=== PATIENT | male | born 1950 | race Caucasian/White ===

== ENCOUNTER 2017-10-28 16:13 | Inpatient (IN) ==
--- NOTE | 2017-10-28 16:59 | Emergency Department Note ---
Disposition Clinical Impression: TIA (transient ischemic attack) Disposition: Admitted As Inpatient Condition: Good [facility] - Forms: ED Satisfaction Letter General Adult HPI - General Chief complaint: ED Neuro Symptoms/Deficit Stated complaint: Left side face and arm Time Seen by Provider: 10/28/17 16:37 Source: patient Limitations: no limitations Nursing Notes Reviewed: Yes Vital Signs Reviewed: Yes - History of Present Illness HPI Narrative: [place] sent [place] the [facility] for further evaluation of TIA. Transferred for neurology evaluation. Symptoms started upon awakening. Left-sided paresthesias. Patient did have some right-sided face paresthesias and upon evaluation at the [facility] had concern for left-sided facial droop. Patient has had some symptoms similar in the past were never evaluated. Always resolved on their own. Symptoms lasted longer than usual today. Symptoms have completely resolved upon evaluation in the emergency department. No fevers or chills. No chest pain or shortness of breath or abdominal pain or nausea or vomiting or diarrhea. Past medical history includes left foot wound. Chronic skin ulcer. Mild asthma. Lumbar stenosis. Hypogonadism. Hypertriglyceridemia. Diabetes with neurologic manifestations. Gout. Sleep apnea. Celiac disease. Reflux. Hypertension. Medications include allopurinol, doxycycline, duloxetine area gabapentin. HIDA chlorothiazide. Lisinopril. Metformin. Metoprolol. Modafinil. Naproxen. Omeprazole. Zolpidem. Fall psych with your. Pain Scale: 0 - Related Data Home Medications Medication Instructions Recorded Confirmed Albuterol Sulfate [Albuterol 2 puff IH Q4H PRN 08/11/17 10/28/17 Inhaler] Allopurinol [Zyloprim] 300 mg PO BID 08/11/17 10/28/17 Gabapentin [Neurontin] 600 mg PO TID 08/11/17 10/28/17 Insulin Glargine [Lantus] 45 units SQ DAILY 08/11/17 10/28/17 Lisinopril 30 mg PO DAILY 08/11/17 10/28/17 Metformin HCl [Glumetza] 2,000 mg PO DAILY 08/11/17 10/28/17 Metoprolol [Lopressor] 50 mg PO DAILY 08/11/17 10/28/17 Modafinil [Provigil] 200 mg PO BID 08/11/17 10/28/17 NIFEdipine [Nifedipine ER] 30 mg PO DAILY 08/11/17 10/28/17 Omeprazole [PriLOSEC] 40 mg PO DAILY 08/11/17 10/28/17 Sertraline [Zoloft] 50 mg PO DAILY 08/11/17 10/28/17 Budesonide/Formoterol 80/4.5 2 puff IH BID 10/28/17 10/28/17 [Symbicort 80/4.5] Cholecalciferol (D-3) [Vitamin D] 1,000 unit PO DAILY 10/28/17 10/28/17 Duloxetine HCl [Cymbalta] 60 mg PO DAILY 10/28/17 10/28/17 Insulin LISPRO [HumaLOG] 8 - 10 units SQ TIDWM 10/28/17 10/28/17 hydroCHLOROthiazide 25 mg PO DAILY 10/28/17 10/28/17 [Hydrochlorothiazide] Allergies Allergy/AdvReac Type Severity Reaction Status Date / Time Sulfa (Sulfonamide AdvReac Difficulty Verified 08/19/16 13:47 Antibiotics) Breathing Review of Systems: CONSTITUTIONAL: No weight loss, fever, chills, weakness or fatigue. HEENT: Eyes: No visual changes. Ears, Nose, Throat: No hearing loss, difficulty talking or unable to swallow. SKIN: No rash or itching. CARDIOVASCULAR: No chest pain, chest pressure or chest discomfort. No palpitations or edema. RESPIRATORY: No shortness of breath, cough or sputum. GASTROINTESTINAL: No anorexia, nausea, vomiting or diarrhea. No abdominal pain or blood. GENITOURINARY: No burning on urination or hematuria. NEUROLOGICAL: Left arm paresthesias and weakness. Left facial droop. No headache, dizziness, syncope, paralysis, ataxia. No change in bowel or bladder control. MUSCULOSKELETAL: No muscle pain, back pain, joint pain or stiffness. Past Medical History - Past Medical History Medical history: Reports: arthritis, diabetes, GERD, hyperlipidemia, hypertension, myocardial infarction, other Psychiatric history: Reports: no psych history - Social History Smoking Status: Never smoker Smokeless Tobacco Status: No Alcohol use: Reports: none Drug use: Reports: none Physical Exam General: Well appearing, nontoxic, no acute distress Head: Normocephalic Atraumatic Eyes: PERRL, EOMI ENT: Airway patent, no stridor Neck: supple Chest: Lungs clear to auscultation bilateral Cardiac: Regular rate and rhythm, no murmurs, rubs or gallops Abdomen: soft, nontender, nondistended; no guarding, rebound, or tenderness to percussion Musculoskeletal: Calves symmetric, nontender Skin: No rash, normal skin tone Neuro: Alert and Oriented to person, place, and time; No focal deficit, CN 2-12 symmetric and intact other than mild left facial droop which has unknown chronicity. 5 out of 5 muscle strength the upper lower extremities. Finger to nose and heel to shafer intact. Sensory intact throughout the face arms and legs. - General Limitations: no limitations General appearance: alert, in no apparent distress Course - Consultations Consultation #1: Discussed with hospitalist. Patient accepted for admission. Vital Signs Temperature 97.7 F 10/28/17 16:16 Pulse Rate 73 10/28/17 16:16 Respiratory Rate 14 10/28/17 16:16 Blood Pressure 141/101 10/28/17 16:16 O2 Sat by Pulse Oximetry 99 10/28/17 16:16 Temperature 97.7 F 10/28/17 16:16 Pulse Rate 73 10/28/17 16:16 Respiratory Rate 14 10/28/17 16:16 Blood Pressure 141/101 10/28/17 16:16 O2 Sat by Pulse Oximetry 99 10/28/17 16:16 Oxygen Delivery Oxygen Delivery Room Air Medical Decision Making - Medical Records Medical records reviewed: Yes I reviewed the patient's medical records. - Lab Data Lab results reviewed: Yes I reviewed the patient's lab results. Result diagrams: 10/28/17 17:33 10/28/17 17:33 Lab Results 10/28/17 10/28/17 10/28/17 Range/Units 17:33 17:33 17:33 WBC 6.0 (4.3-11.1) K/mcL RBC 3.97 L (4.19-5.50) M/mcL Hgb 12.0 L (12.9-16.9) g/dL Hct 32.9 L (37.5-50.1) % MCV 82.9 L (83.0-100.0) fL MCH 30.2 (28.0-33.3) pg MCHC 36.5 H (31.6-35.5) g/dL RDW 13.3 (11.5-14.5) % Plt Count 149 (140-400) K/mcL MPV 11.2 (9.4-12.4) fL Immature Gran % 1.8 (0-4) % Seg Neutrophils % 70.8 % Lymphocytes % 17.9 % Monocytes % 5.0 % Eosinophils % 3.8 % Basophils % 0.7 % Neutrophils # 4.3 (1.6-8.9) K/mcL Lymphocytes # 1.1 (0.6-4.6) K/mcL Monocytes # 0.3 (0.0-1.3) K/mcL Eosinophils # 0.2 (0.0-0.6) K/mcL Basophils # 0.0 (0.0-0.2) K/mcL PT 13.6 H (9.4-12.1) Seconds INR 1.2 Sodium 133 L (136-145) mEq/L Potassium 4.2 (3.5-5.1) mEq/L Chloride 102 (98-107) mEq/L Carbon Dioxide 23 (23-29) mEq/L BUN 23 (8-23) mg/dL Creatinine 1.14 (0.70-1.30) mg/dL Est GFR ( Amer) > 60 (> 60) Est GFR (Non-Af Amer) > 60 (> 60) BUN/Creatinine Ratio 20 (6-26) Glucose 191 H (70-105) mg/dL Calculated Osmolality 285 (280-300) Calcium 9.2 (8.6-10.3) mg/dL Troponin I < 0.03 (< 0.04) ng/mL - Radiology Data Radiology results reviewed: Yes I reviewed the patient's radiology results. - EKG Data EKG #1 EKG attestation: Yes I reviewed and interpreted this EKG. EKG results narrative: EKG shows sinus rhythm with a heart rate of 81. AL interval 186. QRS 98. QTC 443. Patient has no significant ST elevations or depressions. No previous EKG for comparison.
[2017-10-28] MEDS ORDERED: 0.9 % Sodium Chloride 1,000 ML IVC ONE (17:19)
[2017-10-28 17:57] LABS: Basophils % 0.7 %; Eosinophils # 0.2 K/mcL (0.0-0.6); Eosinophils % 3.8 %; Hematocrit 32.9 % (37.5-50.1); Immature Granulocytes % 1.8 % (0-4); Lymphocytes # 1.1 K/mcL (0.6-4.6); Lymphocytes % 17.9 %; Mean Corpuscular HGB Conc 36.5 g/dL (31.6-35.5); Mean Corpuscular Hemoglobin 30.2 pg (28.0-33.3); Mean Corpuscular Volume 82.9 fL (83.0-100.0); Mean Platelet Volume 11.2 fL (9.4-12.4); Monocytes # 0.3 K/mcL (0.0-1.3); Neutrophils # 4.3 K/mcL (1.6-8.9); Platelet Count 149 K/mcL (140-400); Red Blood Count 3.97 M/mcL (4.19-5.50); Red Cell Distribution Width 13.3 % (11.5-14.5); Segmented Neutrophils % 70.8 %
[2017-10-28 18:05] LABS: INR 1.2; Prothrombin Time 13.6 Seconds (9.4-12.1)
[2017-10-28 18:21] LABS: BUN/Creatinine Ratio 20 (6-26); Blood Urea Nitrogen 23 mg/dL (8-23); Calcium 9.2 mg/dL (8.6-10.3); Carbon Dioxide 23 mEq/L (23-29); Chloride 102 mEq/L (98-107); Glucose 191 mg/dL (70-105); Osmolality,Calculated 285 (280-300); Potassium 4.2 mEq/L (3.5-5.1); Sodium 133 mEq/L (136-145); eGFR For Non-African Americans > 60 (> 60)
[2017-10-28 18:22] LABS: Troponin I < 0.03 ng/mL (< 0.04)
[2017-10-28] MEDS ORDERED: *HR* Dextrose 50 % in Water (Syg) 50 ML SYRINGE IVP PRN ×2 (20:59→22:18)
[2017-10-28] MEDS ORDERED: D5% in Water 1,000 ML IVC PRN ×2 (20:59→22:18)
[2017-10-28] MEDS ORDERED: Dextrose Gel 15 GM/37.5 ML TUBE PO PRN ×4 (20:59→22:18)
[2017-10-28] MEDS: Insulin LISPRO 300 UNITS/3 ML VIAL SQ SCH (22:01)
[2017-10-28] MEDS ORDERED: Naloxone 0.4 MG/ML INJ IVP PRN (22:18)
--- NOTE | 2017-10-29 00:09 | Internal Med History&Physical ---
Date of Encounter: 10/28/17 Time of Encounter: 20:50 Internal Medicine - H&P: HPI Chief complaint: left sided numbness Admitted From: Emergency Dept Plans for Post Hospital Care: Home History of present illness: Mr. Lloyd is a 67 year old male who presents to the ER today upon referral from the [place] urgent care. He presented to the [place] urgent care earlier today with complaints of left-sided numbness and weakness of his arm and left-sided facial numbness and tingling. By the time he arrived to our ER, his symptoms resolved. He has had these episodes before but has not had a complete workup for stroke. Workup in the ER was negative, and he was admitted to the hospitalist service. Upon my assessment of the patient, patient feels well and has no further complaints. His symptoms have completely resolved. He does state that this has happened twice before with quick resolution within minutes. However, this time, the episode lasted several hours. Risk factors for stroke include diabetes, hypertension, and hyperlipidemia. He also describes some exertional dyspnea which has occurred several times over the last few weeks. He denies any chest pain or palpitations. He is diabetic, however. He states he has had a remote heart attack in the past, but he had a clean heart catheterization several years ago after the heart attack. Currently he has no chest pain, dyspnea, or diaphoresis. Past Med Surg Social Fam HX - Past Medical History Attestation: Yes The following information was validated with the patient. Source: patient, old records reviewed, [facility]) Medical history: arthritis, diabetes, GERD, hyperlipidemia, hypertension, myocardial infarction, other Additional medical history: Gout, Cerebral Ischemia Psychiatric history: no psych history - Past Surgical History Surgical History: cholecystectomy, herniorrhaphy Additional surgical history: back surgery, strangulated hernia, Gallbladder removal. - Social History Smoking Status: Never smoker Smokeless Tobacco Status: No Alcohol use: none Drug use: none Current living situation: Home Activity Level: Independent ambulation Recent Out of Country Travel Within the Last 8 Weeks: No - Family History Father Family Member Ethnicity: Non- Living Status: Age at : 86 Cause of : CHF Hx Family Cardiac Disorders: Yes (CHF, HTN) Hx Family Respiratory Disorders: No Hx Family Cancer: No Hx Family GI Disorders: No Hx Family Genitourinary Disorders: No Hx Family Endocrine Disorder: No Hx Family Musculoskeletal Disorders: No Hx Family Neuromuscular Disorders: No Hx Family Neurologic Disorders: No Hx Family HEENT Disorders: No Hx Family Autoimmune Disorders: No Hx Family Reproductive Disorders: No Hx Family Psychosocial Disorders: No Hx Family Medical Disorders: No Mother Family Member Ethnicity: Non- Living Status: Age at : 85 Cause of : CHF Hx Family Cardiac Disorders: Yes (CHF, MA, HTN, HLD) Hx Family Respiratory Disorders: Yes (Asthma, COPD) Hx Family Cancer: No Hx Family GI Disorders: Yes (GERD) Hx Family Genitourinary Disorders: Yes (Kidney disease) Hx Family Endocrine Disorder: Yes (DM) Hx Family Musculoskeletal Disorders: No Hx Family Neuromuscular Disorders: No Hx Family Neurologic Disorders: No Hx Family HEENT Disorders: No Hx Family Autoimmune Disorders: No Hx Family Reproductive Disorders: No Hx Family Psychosocial Disorders: No Hx Family Medical Disorders: No Internal Medicine - H&P: Meds Albuterol Sulfate [Albuterol Inhaler] 2 puff IH Q4H PRN 08/11/17 [History] Allopurinol [Zyloprim] 300 mg PO BID 08/11/17 [History] Gabapentin [Neurontin] 600 mg PO TID 08/11/17 [History] Insulin Glargine [Lantus] 45 units SQ DAILY 08/11/17 [History] Lisinopril 30 mg PO DAILY 08/11/17 [History] Metformin HCl [Glumetza] 2,000 mg PO DAILY 08/11/17 [History] Metoprolol [Lopressor] 50 mg PO DAILY 08/11/17 [History] Modafinil [Provigil] 200 mg PO BID 08/11/17 [History] NIFEdipine [Nifedipine ER] 30 mg PO DAILY 08/11/17 [History] Omeprazole [PriLOSEC] 40 mg PO DAILY 08/11/17 [History] Sertraline [Zoloft] 50 mg PO DAILY 08/11/17 [History] Budesonide/Formoterol 80/4.5 [Symbicort 80/4.5] 2 puff IH BID 10/28/17 [History ] Cholecalciferol (D-3) [Vitamin D] 1,000 unit PO DAILY 10/28/17 [History] Duloxetine HCl [Cymbalta] 60 mg PO DAILY 10/28/17 [History] Insulin LISPRO [HumaLOG] 8 - 10 units SQ TIDWM 10/28/17 [History] hydroCHLOROthiazide [Hydrochlorothiazide] 25 mg PO DAILY 10/28/17 [History] 3 Allergy/AdvReac Type Severity Reaction Status Date / Time Sulfa (Sulfonamide AdvReac Difficulty Verified 08/19/16 13:47 Antibiotics) Breathing - Constitutional Constitutional: no chills, no fever(s), no malaise, no night sweats - EENT Eyes: no blurry vision, no change in vision Ears: no ear pain, no tinnitus Nose, mouth and throat: no nasal congestion, no nasal discharge, no sore throat - Cardiovascular Cardiovascular ROS IM: dyspnea on exertion, no chest pain, no diaphoresis, no lightheadedness, no palpitations, no syncope - Respiratory Respiratory: no cough, no hemoptysis, no chest congestion, no excessive phlegm production, no change in phlegm color - Gastrointestinal Gastrointestinal: no abdominal pain, no diarrhea, no hematemesis, no hematochezia, no melena, no vomiting - Genitourinary Genitourinary ROS male: no dysuria, no flank pain, no hematuria - Musculoskeletal Musculoskeletal ROS IM: no arthralgias, no back pain, no muscle cramps - Integumentary Integumentary IM: no rash, no jaundice - Neurological Neurological ROS: focal weakness (left arm), no dizziness, no frequent falls, no headache(s) - Psychiatric Psychiatric: no anxiety, no depression - Endocrine Endocrine IM: no polydipsia, no polyuria - Allergic/Immunologic Allergic/Immunologic: no wheezing - Constitutional Vitals: Temp Pulse Resp BP Pulse Ox 98.2 F 96 16 161/85 97 10/28/17 23:26 10/28/17 23:26 10/28/17 23:26 10/28/17 23:26 10/28/17 23:26 General appearance: Present: cooperative, A&O X 3, pleasant, no acute distress, answers questions appropriately Exam: see below - Head Head exam: Present: atraumatic, normal inspection - Eye Eye exam: Present: EOMI, PERRL. Absent: scleral icterus Pupils: Present: normal accommodation - ENT ENT exam: Present: mucous membranes moist, normal exam, normal oropharynx - Neck Neck exam general surgery: Present: full ROM, supple. Absent: tenderness, thyromegaly - Expanded Neck Exam Neck exam: Absent: carotid bruit - Respiratory Respiratory exam: Present: CTAB. Absent: chest wall tenderness, rales, respiratory distress, rhonchi, wheezes - Cardiovascular Cardiovascular exam: Present: RRR, +S1, +S2. Absent: diastolic murmur, systolic murmur - GI/Abdominal GI/Abdominal exam: Present: normal bowel sounds, soft. Absent: guarding, hepatomegaly, mass, rebound, splenomegaly, tenderness - Extremities Exam Extremities exam: Present: normal capillary refill, warm, radial pulses palpable and symmetrical. Absent: calf tenderness, pedal edema, tenderness - Back Exam Back exam: Absent: CVA tenderness (L), CVA tenderness (R) - Neurological Exam Neurological exam: Present: alert, CN II-XII intact, oriented X3, reflexes normal, no focal deficits, strengths equal and symetr throughout. Absent: facial droop, speech deficit - Psychiatric Psychiatric exam: Present: normal affect, normal mood - Skin Skin exam: Present: dry, warm. Absent: rash Internal Med - H&P Results - Labs CBC & Chem 7: 10/28/17 17:33 10/28/17 17:33 Labs: Cardiac Enzymes 10/28/17 Range/Units 23:11 Troponin I < 0.03 (< 0.04) ng/mL - EKG Data -: EKG Interpreted by Myself EKG shows normal: sinus rhythm - EKG Data Prior EKG available for review: no EKG comments: 10/29/17 00:13 NSR; no acute changes - Diagnostic Studies Chest x-ray Status: image reviewed by me (negative) - Assessment and plan (1) TIA (transient ischemic attack) Current Visit: Yes Status: Acute Assessment and plan: 1. Symptoms resolved. 2. Will proceed with stroke work-up including MRI brain, ECHO, and carotid Dopplers. 3. Neurochecks per protocol. 4. Start ASA and STATIN. (2) Exertional dyspnea Current Visit: Yes Status: Acute Assessment and plan: 1. Will trend troponins, EKG's, and order ECHO. 2. He will need stress test or LHC after stroke work-up -- can be done as outpatient if above negative. 3. Currently asymptoamtic. (3) IDDM (insulin dependent diabetes mellitus) Current Visit: Yes Status: Chronic Assessment and plan: 1. Continue basal insulin and add SSI. 2. Monitor and adjust insulin per glucose readings. (4) DVT prophylaxis Current Visit: Yes Status: Acute Assessment and plan: 1. Heparin SQ.
[2017-10-29] MEDS ORDERED: Gabapentin 300 MG CAPSULE PO ONE (00:30)
[2017-10-29] MEDS ORDERED: Aspirin 325 MG TABLET PO ONE (00:32)
[2017-10-29] MEDS: *HR* Heparin 5,000 UNIT/ML VIAL SQ SCH ×2 (05:12→16:54)
[2017-10-29 05:47] LABS: Basophils % 0.7 %; Eosinophils # 0.3 K/mcL (0.0-0.6); Eosinophils % 5.1 %; Hematocrit 33.1 % (37.5-50.1); Hemoglobin 11.6 g/dL (12.9-16.9); Immature Granulocytes % 1.8 % (0-4); Lymphocytes # 1.3 K/mcL (0.6-4.6); Lymphocytes % 20.8 %; Mean Corpuscular Volume 82.8 fL (83.0-100.0); Mean Platelet Volume 11.4 fL (9.4-12.4); Monocytes # 0.4 K/mcL (0.0-1.3); Monocytes % 5.8 %; Platelet Count 152 K/mcL (140-400); Red Cell Distribution Width 13.2 % (11.5-14.5); Segmented Neutrophils % 65.8 %
[2017-10-29 05:50] LABS: INR 1.2; Prothrombin Time 13.1 Seconds (9.4-12.1)
[2017-10-29 06:06] LABS: Alanine Aminotransferase 10 Units/L (7-52); Albumin 4.3 g/dL (3.5-5.7); Alkaline Phosphatase 73 Units/L (34-104); Aspartate Amino Transferase 13 Units/L (13-39); BUN/Creatinine Ratio 21 (6-26); Bilirubin,Total 0.5 mg/dL (0.3-1.0); Blood Urea Nitrogen 23 mg/dL (8-23); Calcium 9.2 mg/dL (8.6-10.3); Carbon Dioxide 22 mEq/L (23-29); Chloride 103 mEq/L (98-107); Globulin 2.2 g/dL (2.4-3.5); Glucose 236 mg/dL (70-105); Magnesium 1.4 mg/dL (1.6-2.6); Osmolality,Calculated 289 (280-300); Sodium 134 mEq/L (136-145); Total Protein 6.5 g/dL (6.4-8.9); eGFR For Non-African Americans > 60 (> 60)
[2017-10-29] MEDS: Budesonide/Formoterol 80/4.5 MDI IH SCH ×2 (08:13→19:51)
[2017-10-29] MEDS: Lisinopril 20 MG TABLET PO SCH (08:24)
[2017-10-29] MEDS: Gabapentin 300 MG CAPSULE PO SCH ×3 (08:24→20:41)
[2017-10-29] MEDS: Insulin DETEMIR 100 UNIT/ML X5UNITS SQ SCH (08:32)
[2017-10-29] MEDS: Insulin LISPRO 300 UNITS/3 ML VIAL SQ SCH ×4 (08:32→20:42)
[2017-10-29] MEDS ORDERED: Aspirin Enteric Coated 81 MG Tablet PO SCH (09:00)
[2017-10-29] MEDS ORDERED: INSULIN GLARGINE 45 UNIT SQ SCH (09:00)
[2017-10-29] MEDS ORDERED: Acetaminophen 325 MG TABLET PO PRN (10:58)
[2017-10-29] MEDS ORDERED: Perflutren Lipid Microsphere 1.3 ML in 0.9 % Sodium Chloride 8.7 ML IVP ONE (11:07)
[2017-10-29] MEDS ORDERED: Aspirin Enteric Coated 325 MG Tablet PO SCH (21:00)
[2017-10-30] MEDS: *HR* Heparin 5,000 UNIT/ML VIAL SQ SCH (05:18)
[2017-10-30 05:39] LABS: Chol/HDL Ratio 7.9 (0-4.9); Cholesterol 182 mg/dL (< 200); HDL Cholesterol 23 mg/dL (40-59); Triglycerides 1159 mg/dL (< 150)
[2017-10-30 07:32] VITALS: BP 195/101
[2017-10-30] MEDS: Gabapentin 300 MG CAPSULE PO SCH (07:55)
[2017-10-30] MEDS: Insulin DETEMIR 100 UNIT/ML X5UNITS SQ SCH (07:56)
[2017-10-30] MEDS: Lisinopril 20 MG TABLET PO SCH (07:56)
[2017-10-30] MEDS: Insulin LISPRO 300 UNITS/3 ML VIAL SQ SCH (07:57)
[2017-10-30] MEDS: Budesonide/Formoterol 80/4.5 MDI IH SCH (08:26)
--- NOTE | 2017-10-30 09:19 | Discharge Summary ---
- NOTES TO OUTPATIENT PROVIDER Notes to Outpatient Provider: f/u with PCP within a week. Date of Encounter: 10/30/17 Time of Encounter: 09:13 - Discharge Diagnosis (1) TIA (transient ischemic attack) Priority: Primary Status: Acute (2) Exertional dyspnea Priority: Primary Status: Resolved (3) IDDM (insulin dependent diabetes mellitus) Priority: Secondary Status: Chronic (4) DVT prophylaxis Priority: Primary Status: Acute Hospital course: Mr. Lloyd is a 67 year old male who presents to the ER today upon referral from the [facility] urgent care. He presented to the [place] urgent care earlier today with complaints of left-sided numbness and weakness of his arm and left-sided facial numbness and tingling. By the time he arrived to our ER, his symptoms resolved. He has had these episodes before but has not had a complete workup for stroke. Workup in the ER was negative, and he was admitted to the hospitalist service. MRI of brain was performed which revealed in no acute infarct. Echocardiogram showed normal ejection fraction, mild LVDD, and no PFO. Carotid artery Doppler showed nonstenotic plaque. However, labs revealed significant and elevated triglyceride, patient reported he has been taking fish oil, niacin, and the gemfibrozil, triglyceride has been controlled and the less than 300 in the past. But his PCP took him off fish oil and niacin. Patient restarted on gemfibrozil, he was instructed to follow-up with PCP about a continuation of niacin and fish oil. He was also instructed to follow-up with PCP for the control blood sugar and blood pressure. Patient will be discharged home today. He was instructed to continue aspirin, start to take Plavix and follow-up with PCP regularly. Discharge discussed with: patient Time spent discussing smoking cessation with patient: more than 10 minutes - Time Spent with Patient Total time spent providing and/or coordinating discharge services: Greater than 30 minutes - Discharge Medications Prescriptions: Aspirin 81 mg PO DAILY #30 tab.chew Clopidogrel Bisulfate [Plavix] 75 mg PO DAILY #30 tablet Gemfibrozil [Lopid] 600 mg PO BIDAC #60 tablet Home Medications: Albuterol Sulfate [Albuterol Inhaler] 2 puff IH Q4H PRN 08/11/17 [History] Allopurinol [Zyloprim] 300 mg PO BID 08/11/17 [History] Gabapentin [Neurontin] 600 mg PO TID 08/11/17 [History] Insulin Glargine [Lantus] 45 units SQ DAILY 08/11/17 [History] Lisinopril 30 mg PO DAILY 08/11/17 [History] Metformin HCl [Glumetza] 2,000 mg PO DAILY 08/11/17 [History] Metoprolol [Lopressor] 50 mg PO DAILY 08/11/17 [History] Modafinil [Provigil] 200 mg PO BID 08/11/17 [History] NIFEdipine [Nifedipine ER] 30 mg PO DAILY 08/11/17 [History] Omeprazole [PriLOSEC] 40 mg PO DAILY 08/11/17 [History] Sertraline [Zoloft] 50 mg PO DAILY 08/11/17 [History] Budesonide/Formoterol 80/4.5 [Symbicort 80/4.5] 2 puff IH BID 10/28/17 [History ] Cholecalciferol (D-3) [Vitamin D] 1,000 unit PO DAILY 10/28/17 [History] Duloxetine HCl [Cymbalta] 60 mg PO DAILY 10/28/17 [History] Insulin LISPRO [HumaLOG] 8 - 10 units SQ TIDWM 10/28/17 [History] hydroCHLOROthiazide [Hydrochlorothiazide] 25 mg PO DAILY 10/28/17 [History] Aspirin 81 mg PO DAILY #30 tab.chew 10/30/17 [Rx] Clopidogrel Bisulfate [Plavix] 75 mg PO DAILY #30 tablet 10/30/17 [Rx] Gemfibrozil [Lopid] 600 mg PO BIDAC #60 tablet 10/30/17 [Rx] Allergies/Adverse Reactions: 3 Allergy/AdvReac Type Severity Reaction Status Date / Time Sulfa (Sulfonamide AdvReac Difficulty Verified 08/19/16 13:47 Antibiotics) Breathing Date of admission: 10/28/17 23:55 Primary care physician: PCP [facility] Anticipated date of discharge: 10/30/17 - Constitutional Vitals: Temp Pulse Resp BP Pulse Ox 97.5 F L 93 18 195/101 97 10/30/17 07:26 10/30/17 07:26 10/30/17 07:26 10/30/17 07:26 10/30/17 07:26 General appearance: Present: cooperative, A&O X 3, pleasant, no acute distress, answers questions appropriately Exam: PHYSICAL EXAMINATION: GENERAL APPEARANCE: The patient is alert, oriented and in no acute distress. HEENT: Head is normocephalic. The sinuses are nontender. Pupils are equal and reactive. The nares are patent. Oropharynx clear without lesions. NECK: Supple without lymphadenopathy. HEART: Regular rate and rhythm. LUNGS: No crackles or wheezes are heard. ABDOMEN: Soft, nontender, nondistended with good bowel sounds heard. Inguinal area is normal. EXTREMITIES: Without cyanosis, clubbing or edema. NEUROLOGICAL: Gross nonfocal. SKIN: Warm and dry without any rash. - Patient Status Disposition: Home, Self-Care Condition: Good Functional capacity at discharge: independent ambulation Overall status at discharge: patient is progressing back to baseline - Discharge Instructions Instructions: Heart Healthy Diet ([facility]), Chronic Hypertension ([facility]), Low Sodium Diet ([facility]), Hypertension ([facility]) [facility] Provider[facility] - (Please call and make a follow up appointment with in 1-2 weeks from discharge. We were unable to call due to weekend discharge date. ) Additional Instructions: Please keep a log of you blood pressure at least twice daily to take to your follow up appointment. They may need to change your home blood pressure medications if it continues to be high. Your medications were called into the [place] pharmacy. Follow-up appointments: If there is not an appointment listed below, please call your physician and schedule a follow-up appointment. If you have congestive heart failure and your symptoms return, make an appointment with your physician. Medication List: Carry an up to date list of medications you are taking at all time. We have given you an updated medication list including any new medications that you have been prescribed. Please provide that list to your primary provider Symptoms: If your condition changes or you experience any of the following symptoms, notify your physician immediately: Unusual or worsening pain, fever, persistent nausea and vomiting, bleeding, increase in swelling (especially in your legs), sudden weight gain, extreme dizziness, chest pain, increased drainage or redness from a wound or incision. Go to the emergency department if you experience a problem with breathing. Weights: If you have a history of swelling or shortness of breath, weigh yourself daily and notify your physician if you have a weight gain of two or more pounds in one day or 5 or more pounds in a week. If you experience any of the warning signs for stroke: Sudden numbness or weakness of the face, arm or leg; especially on one side of the body, sudden confusion, trouble speaking or understanding, sudden trouble seeing in one or both eyes, sudden trouble walking, dizziness, loss of balance or coordination, sudden sever headache with no cause; Call 911 or go to the emergency room. Stroke is a medical emergency. Some risk factors for stroke: Age, cigarette smoking, diabetes, excessive alcohol consumption, family history , high blood pressure, overweight, physical inactivity, prior stroke, heart attack, diagnosis of carotid artery stenosis or other artery disease. If you smoke, STOP: Smoking or tobacco use significantly increases your risk of heart and lung disease. Your chance of disease greatly increases if you continue to smoke. For more information, call the [place] tobacco quit line for smoking cessation QUIT-NOW ( ) - Diet and Activity Activity: increase activity as tolerated Diet: diabetic diet, low fat, low cholesterol, low salt diet
== END 2017-10-30 10:29 | disposition home or self-care (01) | DRG 69 ==
LOC: 3BNU 16:13 → EMEROOARM 16:13 → 3BNU 20:22
PROVIDERS: ADMIT Internal Medicine; ATTEND Internal Medicine